=== PATIENT | female | born 1990 | race African-American/Black ===

== ENCOUNTER 2017-10-10 13:24 | Emergency (ER) | payer OTHER ==
[~2017-10-10] VITALS: Ht 160 cm; Wt 98.0 kg
--- NOTE | ~2017-10-10 | EKG ---
[place] [address] [facility] [place] [address] ELECTROCARDIOGRAM REPORT Name: NORBERTO SRINIVASANTEL Room #: DEP [facility]#: [id number] Admission: 10/10/17 Attend Phys: Discharge: 10/10/17 Date of : 86 Report #: [id number] THIS REPORT FOR: //name// [facility] ED Test Date: 2017-10-10 Test Time: 13:38:00 Pat Name: NORBERTO SRINIVASAN Department: Room: Gender: F Emergency Room Doctor: KKODJOVI : 1990 Requested By: Keily Todd Order Number: [id number] MD: James Marshall Measurements Intervals [place] Rate: 62 P: 58 MA: 193 QRS: 30 QRSD: 99 T: 18 QT: 399 QTc: 406 Interpretive Statements Sinus rhythm Baseline wander in lead(s) V2,V5,V6 No previous ECG available for comparison Electronically Signed On 10-11-2017 13:18:31 CDT by James Marshall [email or web address] <ELECTRONICALLY SIGNED> By: James Marshall MD, [facility] 10/11/17 1318 1338 [id number] James Marshall MD, FACC /EPI
[~2017-10-10 13:24] MED LIST: ACETAMINOPHEN-1 EAC1 PO; APAP500 PO; COLACE100 MG PO; DERMOPLAST SPRA56 ML; DOCUSATE SODIU100 MG PO; FERRO-TIME325 MG PO; IBUPROFEN 800800 M1 PO; LANOLIN56 GM; MACROBID 100 M100 M1 PO; PENICILLIN VK500 M1 PO; PRENATE MINI S1 EACH PO; ZOFRAN8 MG PO; ZPAK PO
[2017-10-10 14:02] LABS: ABSOLUTE NEUTROPHILS 5.3 thou/uL (1.4-8.2); BASOPHILS 0.8 % (0.0-2.0); EOSINOPHILS 0.6 % (0.0-3.0); HEMATOCRIT 35.3 % (37.0-47.0); LYMPHOCYTES 27.1 % (24.0-44.0); MCV 94.1 fL (80.0-100.0); MONOCYTES 9.1 % (1.0-8.0); PLATELET COUNT 233 thou/uL (150-400); POLYS 62.4 % (36.0-66.0); RBC 3.75 mil/uL (4.20-5.00); RDW 16.4 % (10.5-14.5); WBC 8.5 thou/uL (4.0-11.0)
[2017-10-10 14:10] LABS: ANION GAP 7 mmol/L (7-16); BUN 15 mg/dL (7-18); CALCIUM 8.7 mg/dL (8.5-10.1); CHLORIDE 103 mmol/L (98-107); CO2 28 mmol/L (21-32); CREATININE 0.7 mg/dL (0.6-1.0); GLUCOSE 92 mg/dL (74-106); POTASSIUM 4.1 mmol/L (3.5-5.1); SODIUM 138 mmol/L (136-145)
[2017-10-10 14:18] LABS: TROPONIN-I < 0.04 ng/mL (<0.06)
[2017-10-10] MEDS ORDERED: PEPCID20 MG PO (14:48)
[2017-11-28] MEDS ORDERED: MACROBID 100 M100 M1 PO (14:59)
== END 2017-10-10 15:26 | disposition home or self-care (01) ==
LOC: ER 13:24
PROVIDERS: Emergency Medicine
DX: R07.89 Other chest pain (principal)

== ENCOUNTER 2018-11-14 22:56 | Emergency (ER) | payer OTHER ==
[~2018-11-14] VITALS: Ht 160 cm; Wt 104.3 kg
[~2018-11-14 22:56] MED LIST changes: +PEPCID20 MG PO
[2018-11-15] MEDS ORDERED: NAPROSYN500 MG PO (01:09)
[2018-11-15] MEDS ORDERED: NORFLEX100 MG PO (01:09)
[2018-11-15 01:19] VITALS: BP 115/68
== END 2018-11-15 01:20 | disposition home or self-care (01) ==
LOC: ER 22:56
DX: S39.012A Strain of muscle, fascia and tendon of lower back, initial encounter (principal); X50.9XXA Other and unspecified overexertion or strenuous movements or postures, initial encounter; Y93.89 Activity, other specified; Y92.89 Other specified places as the place of occurrence of the external cause; Y99.8 Other external cause status; G89.29 Other chronic pain

== ENCOUNTER 2019-03-19 13:58 | Emergency (ER) | payer OTHER ==
[~2019-03-19] VITALS: Ht 160 cm; Wt 108.9 kg
[~2019-03-19 13:58] MED LIST changes: +NAPROSYN500 MG PO; +NORFLEX100 MG PO
[2019-03-19 14:04] VITALS: BP 132/76
[2019-03-19] MEDS ORDERED: NAPROSYN500 MG PO (14:43)
== END 2019-03-19 14:48 | disposition home or self-care (01) ==
LOC: ER 13:58
DX: S93.491A Sprain of other ligament of right ankle, initial encounter (principal); G89.29 Other chronic pain; M54.9 Dorsalgia, unspecified; W01.0XXA Fall on same level from slipping, tripping and stumbling without subsequent striking against object, initial encounter; Y93.89 Activity, other specified; Y92.89 Other specified places as the place of occurrence of the external cause; Y99.8 Other external cause status

== ENCOUNTER 2019-11-16 15:13 | Emergency (ER) | payer BC ==
[~2019-11-16] VITALS: Ht 160 cm; Wt 113.4 kg
[2019-11-16 16:58] LABS: URINE BILIRUBIN NEGATIVE (Negative); URINE BLOOD 2+ (Negative); URINE CLARITY CLEAR; URINE COLOR YELLOW; URINE GLUCOSE-RANDOM* NEGATIVE (Negative); URINE KETONES TRACE (Negative); URINE LEUKOCYTES-REFLEX 3+ (Negative); URINE NITRITE-REFLEX NEGATIVE (Negative); URINE PROTEIN (DIPSTICK) NEGATIVE (Negative); URINE SPECIFIC GRAVITY <= 1.005 (1.005-1.035); URINE UROBILINOGEN 0.2 E.U./dl (0.2-1.0)
[2019-11-16 17:03] LABS: SQUAMOUS 0-3 Few /LPF (0-3)
[2019-11-16 17:04] LABS: BACTERIA-REFLEX None Seen /HPF (None Seen); CRYSTALS None Seen /LPF (None Seen); URINE RBC 0-2 Rare /HPF (0-2); URINE WBC-REFLEX >25 Many /HPF (0-5)
[2019-11-16] MEDS ORDERED: ZOFRAN ODT4 MG PO (17:30)
[2019-11-16] MEDS ORDERED: IBUPROFEN 800800 M1 PO (17:30)
[2019-11-16] MEDS ORDERED: MACROBID 100 M100 M1 PO (17:30)
[2019-11-16 17:44] VITALS: BP 132/82
== END 2019-11-16 17:44 | disposition home or self-care (01) ==
LOC: ER 15:13
PROVIDERS: Emergency Medicine
DX: N39.0 Urinary tract infection, site not specified (principal); R06.02 Shortness of breath; R50.9 Fever, unspecified; R05 Cough; J02.9 Acute pharyngitis, unspecified; Z03.818 Encounter for observation for suspected exposure to other biological agents ruled out

== ENCOUNTER 2020-09-10 15:20 | Emergency (ER) | payer BC ==
[~2020-09-10] VITALS: Ht 160 cm; Wt 113.4 kg
[~2020-09-10 15:20] MED LIST changes: +ZOFRAN ODT4 MG PO
[2020-09-10 16:11] LABS: ABSOLUTE NEUTROPHILS 8.9 thou/uL (1.4-8.2); BASOPHILS 0.5 % (0.0-2.0); EOSINOPHILS 0.5 % (0.0-3.0); HEMATOCRIT 30.7 % (37.0-47.0); HEMOGLOBIN 9.7 gm/dL (12.0-15.0); LYMPHOCYTES 14.4 % (24.0-44.0); MCH 28.8 pg (26.0-34.0); MCHC 31.7 g/dL (28.0-37.0); MONOCYTES 6.5 % (1.0-8.0); PLATELET COUNT 310 thou/uL (150-400); POLYS 78.1 % (36.0-66.0); RBC 3.38 mil/uL (4.20-5.00); RDW 16.3 % (10.5-14.5); WBC 11.4 thou/uL (4.0-11.0)
[2020-09-10 16:15] LABS: CALCIUM 9.1 mg/dL (8.5-10.1); CREATININE 0.8 mg/dL (0.6-1.0); POTASSIUM 3.8 mmol/L (3.5-5.1)
[2020-09-10 16:22] LABS: ALBUMIN 3.3 g/dL (3.4-5.0); TOTAL BILIRUBIN 0.3 mg/dL (0.2-1.0); TOTAL PROTEIN 7.6 g/dL (6.4-8.2)
[2020-09-10] MEDS ORDERED: ZOFRAN ODT4 MG PO (17:24)
[2020-09-10] MEDS ORDERED: ESOMEPRAZOLE MA40 MG PO (17:24)
[2020-09-10 17:42] VITALS: BP 147/78
== END 2020-09-10 17:44 | disposition home or self-care (01) ==
LOC: ER 15:20
PROVIDERS: Emergency Medicine
DX: K29.70 Gastritis, unspecified, without bleeding (principal); G89.29 Other chronic pain; M54.9 Dorsalgia, unspecified

== ENCOUNTER 2021-02-11 16:47 | Emergency (ER) | payer BC ==
[~2021-02-11] VITALS: Ht 160 cm; Wt 113.4 kg
[~2021-02-11 16:47] MED LIST changes: +ESOMEPRAZOLE MA40 MG PO
[2021-02-11 17:37] LABS: URINE BILIRUBIN NEGATIVE (Negative); URINE BLOOD TRACE (Negative); URINE CLARITY SL CLOUDY; URINE COLOR YELLOW; URINE GLUCOSE-RANDOM* NEGATIVE (Negative); URINE KETONES NEGATIVE (Negative); URINE LEUKOCYTES-REFLEX NEGATIVE (Negative); URINE NITRITE-REFLEX NEGATIVE (Negative); URINE PROTEIN (DIPSTICK) NEGATIVE (Negative); URINE SPECIFIC GRAVITY >= 1.030 (1.005-1.035); URINE UROBILINOGEN 0.2 E.U./dl (0.2-1.0)
[2021-02-11 18:14] LABS: ABSOLUTE NEUTROPHILS 9.3 thou/uL (1.4-8.2); BASOPHILS 0.3 % (0.0-2.0); EOSINOPHILS 0.5 % (0.0-3.0); HEMOGLOBIN 8.6 gm/dL (12.0-15.0); LYMPHOCYTES 16.5 % (24.0-44.0); MCHC 30.6 g/dL (28.0-37.0); MCV 81.9 fL (80.0-100.0); PLATELET COUNT 320 thou/uL (150-400); POLYS 75.7 % (36.0-66.0); RBC 3.42 mil/uL (4.20-5.00); RDW 19.1 % (10.5-14.5); WBC 12.3 thou/uL (4.0-11.0)
[2021-02-11 18:26] LABS: CALCIUM 8.6 mg/dL (8.5-10.1); CREATININE 0.9 mg/dL (0.6-1.0); POTASSIUM 3.5 mmol/L (3.5-5.1)
[2021-02-11 18:33] LABS: TOTAL PROTEIN 7.1 g/dL (6.4-8.2)
[2021-02-11] MEDS ORDERED: ZOFRAN ODT4 MG PO (19:26)
[2021-02-11] MEDS ORDERED: LEVSIN-SL0.125 MG PO (19:26)
[2021-02-11 19:51] VITALS: BP 127/64
[2021-02-11 20:27] LABS: ANISOCYTOSIS 2+; HYPOCHROMASIA 1+; POLYCHROMASIA 1+
== END 2021-02-11 19:52 | disposition home or self-care (01) ==
LOC: ER 16:47
PROVIDERS: Emergency Medicine
DX: R10.9 Unspecified abdominal pain (principal); R11.10 Vomiting, unspecified; G89.29 Other chronic pain; M54.9 Dorsalgia, unspecified

== ENCOUNTER 2021-05-20 20:11 | Inpatient (IN) | payer BC ==
[~2021-05-20] VITALS: Ht 160 cm; Wt 115.7 kg
[~2021-05-20 20:11] MED LIST changes: +LEVSIN-SL0.125 MG PO
[2021-05-20 20:34] VITALS: BP 122/83
[2021-05-20 22:02] LABS: URINE BILIRUBIN NEGATIVE (Negative); URINE BLOOD 1+ (Negative); URINE CLARITY SL CLOUDY; URINE COLOR YELLOW; URINE GLUCOSE-RANDOM* NEGATIVE (Negative); URINE KETONES 1+ (Negative); URINE LEUKOCYTES-REFLEX NEGATIVE (Negative); URINE NITRITE-REFLEX NEGATIVE (Negative); URINE PROTEIN (DIPSTICK) 1+ (Negative); URINE SPECIFIC GRAVITY >= 1.030 (1.005-1.035)
[2021-05-20 22:12] LABS: BACTERIA-REFLEX 1-9 Few /HPF (None Seen); SQUAMOUS >10 Many /LPF (0-3); URINE RBC 3-10 Few /HPF (NONE SEEN); URINE WBC-REFLEX 0-5 Rare /HPF (0-5)
[2021-05-20 22:13] LABS: CASTS None Seen /LPF (None Seen); CRYSTALS None Seen /LPF (None Seen); MUCUS >6 Heavy strn/LPF (None Seen)
[2021-05-20 22:54] LABS: ABSOLUTE NEUTROPHILS 10.2 thou/uL (1.4-8.2); BASOPHILS 0.4 % (0.0-2.0); EOSINOPHILS 0.2 % (0.0-3.0); HEMATOCRIT 30.3 % (37.0-47.0); HEMOGLOBIN 9.3 gm/dL (12.0-15.0); LYMPHOCYTES 6.7 % (24.0-44.0); MCH 26.6 pg (26.0-34.0); MCHC 30.7 g/dL (28.0-37.0); MCV 86.6 fL (80.0-100.0); MONOCYTES 4.5 % (1.0-8.0); PLATELET COUNT 297 thou/uL (150-400); POLYS 88.2 % (36.0-66.0); RBC 3.49 mil/uL (4.20-5.00); RDW 20.6 % (10.5-14.5); WBC 11.6 thou/uL (4.0-11.0)
[2021-05-20 22:56] LABS: CALCIUM 8.7 mg/dL (8.5-10.1); CREATININE 0.9 mg/dL (0.6-1.0); POTASSIUM 3.3 mmol/L (3.5-5.1)
[2021-05-20 23:02] LABS: ALBUMIN 2.9 g/dL (3.4-5.0); TOTAL BILIRUBIN 1.1 mg/dL (0.2-1.0); TOTAL PROTEIN 7.3 g/dL (6.4-8.2)
[2021-05-21] VITALS (7 sets, daily range): BP systolic 116–156; BP diastolic 67–92
[2021-05-21 06:12] LABS: HEMATOCRIT 30.9 % (37.0-47.0); HEMOGLOBIN 9.4 gm/dL (12.0-15.0); MCH 26.6 pg (26.0-34.0); MCHC 30.5 g/dL (28.0-37.0); MCV 87.4 fL (80.0-100.0); RBC 3.54 mil/uL (4.20-5.00); RDW 20.7 % (10.5-14.5); WBC 11.3 thou/uL (4.0-11.0)
[2021-05-21 06:31] LABS: ALBUMIN 2.8 g/dL (3.4-5.0); CALCIUM 8.4 mg/dL (8.5-10.1); CREATININE 0.8 mg/dL (0.6-1.0); POTASSIUM 3.8 mmol/L (3.5-5.1); TOTAL PROTEIN 7.1 g/dL (6.4-8.2)
[2021-05-21 09:07] LABS: FOLIC ACID 6.2 ng/mL (8.6-58.9)
[2021-05-21 09:17] LABS: % SATURATION 16 % (20-39); IRON 79 ug/dL (50-170); TIBC 480 ug/dL (250-450)
--- NOTE | 2021-05-21 14:17 | NUR ---
PT ADMITTED RELATED TO PANCREATITIS. CM REVIEWED CHART AND SPOKE WITH CARE TEAM. CM MET WITH PT AT BEDSIDE THIS DAY. PT APPEARED TO BE A&O X4. CM ROLE INTRODUCED. PT INDICATED SHE RESIDES IN A TOWNHOUSE WITH 2 KIDS. PT INDICATED 3 STEPS TO ENTER AND NONE INSIDE. 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 PT INDICATED SHE HER PCP IS DR. YUAN. PT INDICATED SHE PLAND TO RETURN HOME ONCE MEDICALLY STABLE. GI CONSULTED. CM FOLLOWING INDICATED THAT DC PLANNING NEEDS.
--- NOTE | 2021-05-21 14:58 | EKG ---
[address] [address] ELECTROCARDIOGRAM REPORT Name: NORBERTO SRINIVASANTEL Room #: 45- ADM IN M.R.#: [id number] Admission: 05/21/21 Attend Phys: Garfield Singer MD Discharge: Date of : [birth year] Report #: [id number] [facility] ED Test Date: 2021-05-20 Test Time: 20:40:36 Pat Name: NORBERTO SRINIVASAN Department: Room: 452 Gender: F Rn Procedures: JUAN : 1990 Requested By: Garfield Singer Order Number: [id number] MD: Alex Prince Measurements Intervals [place] Rate: 57 P: 56 [place]: 180 QRS: 23 QRSD: 88 T: 13 QT: 433 QTc: 422 Interpretive Statements Sinus rhythm RSR' in V1 or V2, probably normal variant Compared to ECG 10/10/2017 13:38:00 RSR' in V1 or V2 now present Electronically Signed On 05-21-2021 14:57:56 CDT by Alex Prince [email or web address] <ELECTRONICALLY SIGNED> By: Alex Prince MD, [facility] 05/21/21 1457 [id number] 39 Alex Prince MD, FAC /EPI
--- NOTE | 2021-05-21 18:15 | NUR ---
PT REMAINS NPO AND TREAT FOR PAIN. WILL HAVE EGD IN THE AM.
--- NOTE | 2021-05-22 03:55 | NUR ---
ASSUMED CARE OF PT AT 1900. BEDSIDE REPORT RECIEVED. STEPHANIE ASSESSMENT COMPLETE. IVF RUNNING ORDERED. MEDS GIVEN ORDERED. R AC PIV PATENT, SECURED. MEDS GIVEN ORDERED. PAIN MEDS GIVEN INDICATED. PT UP WITH SBA. HOURLY ROUNIGN CONTINUING. ALL NEEDS MET, CALL LIGHT IN REACH.
[2021-05-22 05:35] LABS: ABSOLUTE NEUTROPHILS 12.2 thou/uL (1.4-8.2); BASOPHILS 0.2 % (0.0-2.0); EOSINOPHILS 0.1 % (0.0-3.0); HEMATOCRIT 30.1 % (37.0-47.0); HEMOGLOBIN 9.5 gm/dL (12.0-15.0); LYMPHOCYTES 8.7 % (24.0-44.0); MCH 27.7 pg (26.0-34.0); MCHC 31.6 g/dL (28.0-37.0); MCV 87.5 fL (80.0-100.0); PLATELET COUNT 305 thou/uL (150-400); RBC 3.43 mil/uL (4.20-5.00); RDW 20.3 % (10.5-14.5); WBC 14.3 thou/uL (4.0-11.0)
[2021-05-22 06:03] LABS: CALCIUM 8.3 mg/dL (8.5-10.1); CREATININE 0.8 mg/dL (0.6-1.0); MAGNESIUM 1.9 mg/dL (1.8-2.4); POTASSIUM 4.1 mmol/L (3.5-5.1)
[2021-05-22 07:52] VITALS: BP 141/91
--- NOTE | 2021-05-22 11:23 | NUR ---
Patient off floor for EGD
--- NOTE | 2021-05-22 12:31 | NUR ---
Tirgger for high BMI 45, extreme class III obesity. Pt admitted with pancreatitis. Recent admit for same. Noted with stable weights and intakes. Currently NPO pending EGD today. No intakes yet this admit but 100% on past admissions. Pt with ETOH use daily. Diet to advance as tolerated following procedure. Meds/labs reviewed. Low nutrition risk.
[2021-05-22 13:19] VITALS: BP 104/69
--- NOTE | 2021-05-22 14:46 | NUR ---
PT HAD EGD THIS DAY. CARE TEAM INDICATED THAT ONCE DIET IS ADVANCED AND TOLERATED THAT PT WOULD LIKELY BE MEDICALLY STABLE TO DC HOME TOMORROW Tuesday05/23/21. IT IS ANTICPATED THAT PT BRAYDON LIKELY BE MEDICALLY STABLE TO DC HOME TO SELF CARE.
[2021-05-22 16:35] VITALS: BP 127/68
--- NOTE | 2021-05-22 18:44 | NUR ---
EGD done today, patient still experiencing pain. Relieved by medications. Liquid diet orderedd.
[2021-05-22 20:18] VITALS: BP 120/71
--- NOTE | 2021-05-23 08:00 | NUR ---
PT CONTINUES TO BE ON PAIN MANAGEMENT FROM ABDOMINAL PAIN, A & OX4, COMPLIANT OF TX, NO ADVERSE REACTION, SLEPT THROUGH THE NIGHT, AMBULATED TO THE TOILET NEEDED UNDER SUPERVISION FOR SAFETY. WILL CONTINUE TO MONITOR.
[2021-05-23 08:15] VITALS: BP 121/71
[2021-05-23] MEDS ORDERED: PROTONIX40 M2 PO (09:48)
[2021-05-23] MEDS ORDERED: OXYCODONE HCL 55 MG PO (09:48)
[2021-05-23 16:01] VITALS: BP 124/61
[2021-05-23 16:58] VITALS: BP 124/61
--- NOTE | 2021-05-23 17:40 | NUR ---
Assumed pt care at 7am.Pt in and out of bed independently. Assessment completed.vss. Pt c/o abdominal pain and morphine ivp given with relief. Dr Singer here, dc order noted. Dc summary compile and reviewed with pt. Piv and saline lock dc'd. Pt will be dc home before shift change.Will continue to monitor.
== END 2021-05-23 18:10 | disposition home or self-care (01) | DRG 439 ==
LOC: ER 20:11 → 4W 05-21 01:41 → EROBS 05-21 01:41 → 4W 05-21 03:56
PROVIDERS: Emergency Medicine; Nurse Practitioner; Nurse Practitioner Family; ADMIT Hospitalist; ATTEND Hospitalist
PROC: 0DJ08ZZ Inspection of Upper Intestinal Tract, Via Natural or Artificial Opening Endoscopic (ICD-10-PCS; principal; 2021-05-22)
DX: K85.90 Acute pancreatitis without necrosis or infection, unspecified (principal); E44.0 Moderate protein-calorie malnutrition; Z68.42 Body mass index [BMI] 45.0-49.9, adult; G89.29 Other chronic pain; R10.9 Unspecified abdominal pain; R74.01 Elevation of levels of liver transaminase levels; E87.6 Hypokalemia; D64.9 Anemia, unspecified; E66.9 Obesity, unspecified; K21.9 Gastro-esophageal reflux disease without esophagitis; N92.0 Excessive and frequent menstruation with regular cycle; K44.9 Diaphragmatic hernia without obstruction or gangrene; Z20.822 Contact with and (suspected) exposure to COVID-19
CPT/HCPCS: 10040; 62110; 62900; 70005